=== PATIENT | male | born 1980 | race Caucasian/White ===

== ENCOUNTER 2016-11-08 08:19 | Emergency (ER) | payer SELFPAY ==
[2016-11-08] MEDS ORDERED: Cephalexin 500 MG CAP ONE (09:03)
[2016-11-08] MEDS ORDERED: Adacel (T-DAP) 0.5 ML VIAL ONE (09:03)
--- NOTE | 2016-11-08 09:31 | RAD ---
THREE VIEWS RIGHT WRIST HISTORY: Possible foreign body. FINDINGS: AP, lateral, and oblique views of the right wrist are obtained. Two radiopaque metallic densities a re seen involving the capitate. No other fractures or bony lesions seen. No other evidence of acut e bony pathology noted. IMPRESSION: Two radiopaque metallic densities seen involving the capitate. Are these iatrogenically induced? [facility]
[2016-11-08] MEDS ORDERED: Bacitracin Zinc 1 Packet ONE (09:42)
== END 2016-11-08 09:53 | disposition home or self-care (01) ==
LOC: MADERS 08:19
DX: S61.431A Puncture wound without foreign body of right hand, initial encounter (principal); S61.531A Puncture wound without foreign body of right wrist, initial encounter; S91.331A Puncture wound without foreign body, right foot, initial encounter; F17.210 Nicotine dependence, cigarettes, uncomplicated; W25.XXXA Contact with sharp glass, initial encounter
CPT/HCPCS: 90471; 90715